=== PATIENT | male | born 1990 | race Asian ===

== ENCOUNTER → 2022-02-26 | Emergency (ER) | payer OTHER ==
[~2022-02-26] VITALS: Ht 185.4 cm; Wt 89.8 kg
[~2022-02-26] MED LIST: CEPH-548 PO; DIPHTH,PERTUSS(ACELL),TET VAC 0.5 ML VIAL (Tdap) I.M. ONE; LIDOCAINE 1% 10 MG/ML, 20 ML MDV INJ ONE
[2022-02-26 16:15] VITALS: BP_SYST 137
--- NOTE | 2022-02-26 16:20 | NUR ---
Patient triaged and placed in waiting room. VSS and patient appears in no acute distress at this time. Accompanied by SELF, awaiting available bed, and MD notified of need for MSE.
--- NOTE | 2022-02-26 16:43 | NUR ---
BROUGHT BACK TO BED IN [facility], REPORT GIVEN TO SID
--- NOTE | 2022-02-26 17:15 | NUR ---
Pt bib self to ER CC Skin tear, pt denies pain. left forearm with abrasion controlled bleeding. Left vazquez and thigh with abrasions controlled bleeding. pt has <3 sec cap refill, pedal pulses present and denies pain at this time.
--- NOTE | 2022-02-26 17:30 | NUR ---
ER at bedside examining patient.
[2022-02-26 18:06] VITALS: BP_SYST 137
--- NOTE | 2022-02-26 18:10 | NUR ---
Patient given written and verbal discharge instructions and verbalizes understanding. ER MD discussed with patient the results and treatment provided. Patient in stable condition. ID arm band removed. Opportunity for questions provided and answered. Medication side effect fact sheet provided.
--- NOTE | 2022-02-26 18:10 | NUR ---
SUTURED SITE AND ABRASION SITE CLEANED WITH STERILE SALINE. NON ADHESIVE APPLIED TO ALL ABRASION AND SUTURE SITE AND SECURED WITH BANDAGE WRAP.
== END | disposition home or self-care (01) ==
LOC: SED 16:15
DX: S81.012A Laceration without foreign body, left knee, initial encounter (principal); S50.312A Abrasion of left elbow, initial encounter; Z79.899 Other long term (current) drug therapy; W17.89XA Other fall from one level to another, initial encounter; Y93.89 Activity, other specified; Y92.89 Other specified places as the place of occurrence of the external cause; Y99.8 Other external cause status
CPT/HCPCS: 99283; 73610; 90715; 90471; 12002; J2001

== ENCOUNTER 2022-02-27 04:29 | Emergency (ER) | payer OTHER ==
[~2022-02-27] VITALS: Ht 185.4 cm; Wt 89.8 kg
[2022-02-27 04:32] VITALS: BP_SYST 123
[2022-02-27] MEDS ORDERED: cefTRIAXone 1 GM in LIDOCAINE 1%, 20 ML MDV 2.1 ML IM ONE (04:45)
[2022-02-27] MEDS ORDERED: CEPH-548 PO (04:50)
[2022-02-27 05:17] VITALS: BP_SYST 123
[2022-02-27] MEDS ORDERED: cefTRIAXone 1 GM VIAL ONE (05:20)
[2022-02-27] MEDS ORDERED: LIDOCAINE 1%, 20 ML MDV 20 ML ONE (05:21)
== END 2022-02-27 05:17 | disposition home or self-care (01) ==
LOC: SED 04:29
DX: S90.812A Abrasion, left foot, initial encounter (principal); S90.512A Abrasion, left ankle, initial encounter; S80.212A Abrasion, left knee, initial encounter; S50.312A Abrasion of left elbow, initial encounter; V29.9XXA Motorcycle rider (driver) (passenger) injured in unspecified traffic accident, initial encounter; Y93.89 Activity, other specified; Y92.89 Other specified places as the place of occurrence of the external cause; Y99.8 Other external cause status
CPT/HCPCS: 99283; 96372; J0696; J2001

== ENCOUNTER 2022-03-05 17:10 | Emergency (ER) | payer OTHER ==
[~2022-03-05] VITALS: Ht 185.4 cm; Wt 89.8 kg
[2022-03-05 17:10] VITALS: BP_SYST 132
[~2022-03-05 17:10] MED LIST changes: -DIPHTH,PERTUSS(ACELL),TET VAC 0.5 ML VIAL (Tdap) I.M. ONE; -LIDOCAINE 1% 10 MG/ML, 20 ML MDV INJ ONE
[2022-03-05 18:27] LABS: EOSINOPHILS # (AUTO) 0.1 K/uL (0.0-0.4); EOSINOPHILS % (AUTO) 1.7 % (0.0-4.0); LYMPHOCYTES # (AUTO) 1.9 K/uL (1.0-5.5); MONOCYTES # (AUTO) 0.8 K/uL (0.0-1.0); MONOCYTES % (AUTO) 10.1 % (1.7-9.3); RED CELL DISTRIBUTION WIDTH 13.1 % (9.0-15.0)
[2022-03-05 18:39] LABS: BASOPHILS % (AUTO) 0.4 % (0.0-2.0); HEMATOCRIT 41.6 % (36-54); HEMOGLOBIN 13.9 g/dL (14.0-18.0); LYMPHOCYTES % (AUTO) 23.4 % (20.5-51.5); MEAN CORPUSCULAR HEMOGLOBIN 28 pg (27-31); MEAN CORPUSCULAR HGB CONC 34 % (32-36); MEAN CORPUSCULAR VOLUME 85 fL (79.0-98.0); NEUTROPHILS # (AUTO) 5.2 K/uL (1.8-7.7); NEUTROPHILS % (AUTO) 64.4 % (40.0-70.0); PLATELET COUNT (AUTO) 329 K/uL (130-430); RED BLOOD CELL COUNT(AUTO) 4.91 MIL/uL (4.2-6.2)
[2022-03-05] MEDS ORDERED: BACITRACIN 1 GM OINT TP ONE ×2 (18:52→18:53)
[2022-03-05 19:15] LABS: CALCIUM 9.3 mg/dL (8.4-11.0); CREATININE 1.11 mg/dL (0.55-1.30); POTASSIUM 3.9 mmol/L (3.5-5.1)
[2022-03-05 19:21] LABS: ALBUMIN 3.5 g/dL (3.4-4.8); C-REACTIVE PROTEIN QUANT 0.6 mg/dL (0-0.5); TOTAL BILIRUBIN 0.4 mg/dL (0.0-1.0)
== END 2022-03-05 19:49 | disposition home or self-care (01) ==
LOC: SED 17:10
DX: L08.9 Local infection of the skin and subcutaneous tissue, unspecified (principal); Z79.899 Other long term (current) drug therapy
CPT/HCPCS: 36415; 80053; 83605; 85025; 86140; 99283

== ENCOUNTER 2022-04-13 17:30 | Outpatient (CLI) | payer OTHER ==
[2022-04-13 18:24] LABS: BASOPHILS % (AUTO) 0.4 % (0.0-2.0); EOSINOPHILS # (AUTO) 0.1 K/uL (0.0-0.4); EOSINOPHILS % (AUTO) 0.7 % (0.0-4.0); HEMATOCRIT 42.6 % (36-54); HEMOGLOBIN 14.5 g/dL (14.0-18.0); LYMPHOCYTES % (AUTO) 23.2 % (20.5-51.5); MEAN CORPUSCULAR HEMOGLOBIN 29 pg (27-31); MEAN CORPUSCULAR HGB CONC 34 % (32-36); MEAN CORPUSCULAR VOLUME 84 fL (79.0-98.0); MONOCYTES # (AUTO) 0.6 K/uL (0.0-1.0); MONOCYTES % (AUTO) 6.6 % (1.7-9.3); NEUTROPHILS % (AUTO) 69.1 % (40.0-70.0); PLATELET COUNT (AUTO) 291 K/uL (130-430); RED BLOOD CELL COUNT(AUTO) 5.07 MIL/uL (4.2-6.2); RED CELL DISTRIBUTION WIDTH 13.3 % (9.0-15.0); WHITE BLOOD COUNT (AUTO) 8.6 K/uL (4.8-10.8)
[2022-04-13 18:51] LABS: ALBUMIN 4.1 g/dL (3.4-4.8); CREATININE 1.23 mg/dL (0.55-1.30); POTASSIUM 3.7 mmol/L (3.5-5.1); THYROID STIMULATING HORMONE 1.11 uIu/mL (0.36-3.74); TOTAL BILIRUBIN 0.5 mg/dL (0.0-1.0)
== END 2022-04-13 19:44 | disposition home or self-care (01) ==
LOC: SLB 17:30
PROVIDERS: ATTEND Internal Medicine
DX: I10 Essential (primary) hypertension (principal); E78.5 Hyperlipidemia, unspecified; R73.9 Hyperglycemia, unspecified
CPT/HCPCS: 36415; 80053; 80061; 82306; 82607; 83036; 84443; 85025

== ENCOUNTER 2023-02-07 16:03 | Outpatient (CLI) | payer OTHER ==
[2023-02-07 17:01] LABS: BASOPHILS % (AUTO) 0.5 % (0.0-2.0); EOSINOPHILS # (AUTO) 0.1 K/uL (0.0-0.4); EOSINOPHILS % (AUTO) 1.2 % (0.0-4.0); HEMOGLOBIN 15.1 g/dL (14.0-18.0); LYMPHOCYTES # (AUTO) 1.9 K/uL (1.0-5.5); LYMPHOCYTES % (AUTO) 28.5 % (20.5-51.5); MEAN CORPUSCULAR HEMOGLOBIN 29 pg (27-31); MEAN CORPUSCULAR HGB CONC 34 % (32-36); MEAN CORPUSCULAR VOLUME 85 fL (79.0-98.0); MONOCYTES # (AUTO) 0.5 K/uL (0.0-1.0); MONOCYTES % (AUTO) 7.9 % (1.7-9.3); NEUTROPHILS # (AUTO) 4.2 K/uL (1.8-7.7); NEUTROPHILS % (AUTO) 61.9 % (40.0-70.0); PLATELET COUNT (AUTO) 317 K/uL (130-430); RED BLOOD CELL COUNT(AUTO) 5.28 MIL/uL (4.2-6.2); RED CELL DISTRIBUTION WIDTH 13.4 % (9.0-15.0); WHITE BLOOD COUNT (AUTO) 6.8 K/uL (4.8-10.8)
[2023-02-07 17:14] LABS: CALCIUM 8.8 mg/dL (8.4-11.0); CREATININE 0.97 mg/dL (0.55-1.30); THYROID STIMULATING HORMONE 0.96 uIu/mL (0.34-4.82); TOTAL BILIRUBIN 0.6 mg/dL (0.0-1.0)
== END 2023-02-07 20:19 | disposition home or self-care (01) ==
LOC: SLB 16:03
PROVIDERS: ATTEND Internal Medicine
DX: E78.5 Hyperlipidemia, unspecified (principal); E55.9 Vitamin D deficiency, unspecified; E56.9 Vitamin deficiency, unspecified; R73.9 Hyperglycemia, unspecified
CPT/HCPCS: 36415; 80053; 80061; 82306; 82607; 83037; 84443; 85025

== ENCOUNTER 2023-09-29 14:18 | Outpatient (CLI) | payer OTHER ==
[2023-09-29 16:14] LABS: BASOPHILS % (AUTO) 0.6 % (0.0-2.0); EOSINOPHILS # (AUTO) 0.1 K/uL (0.0-0.4); HEMATOCRIT 43.4 % (36-54); HEMOGLOBIN 14.9 g/dL (14.0-18.0); LYMPHOCYTES % (AUTO) 28.3 % (20.5-51.5); MEAN CORPUSCULAR HEMOGLOBIN 29 pg (27-31); MEAN CORPUSCULAR HGB CONC 34 % (32-36); MEAN CORPUSCULAR VOLUME 85 fL (79.0-98.0); MONOCYTES # (AUTO) 0.5 K/uL (0.0-1.0); MONOCYTES % (AUTO) 7.4 % (1.7-9.3); NEUTROPHILS # (AUTO) 4.3 K/uL (1.8-7.7); NEUTROPHILS % (AUTO) 62.7 % (40.0-70.0); PLATELET COUNT (AUTO) 293 K/uL (130-430); RED BLOOD CELL COUNT(AUTO) 5.11 MIL/uL (4.2-6.2); RED CELL DISTRIBUTION WIDTH 13.3 % (9.0-15.0); WHITE BLOOD COUNT (AUTO) 6.9 K/uL (4.8-10.8)
[2023-09-29 16:26] LABS: HEMOGLOBIN A1C 5.52 % (<5.7)
[2023-09-29 16:45] LABS: ALBUMIN 3.9 g/dL (3.4-4.8); CREATININE 1.09 mg/dL (0.55-1.30); POTASSIUM 3.8 mmol/L (3.5-5.1); THYROID STIMULATING HORMONE 1.44 uIu/mL (0.34-4.82); TOTAL BILIRUBIN 0.6 mg/dL (0.0-1.0); TOTAL PROTEIN, SERUM 7.9 g/dL (6.4-8.3); URIC ACID 9.3 mg/dL (2.4-7.0)
== END 2023-09-29 18:51 | disposition home or self-care (01) ==
LOC: SLB 14:18
PROVIDERS: ATTEND Internal Medicine
DX: E11.65 Type 2 diabetes mellitus with hyperglycemia (principal); E78.5 Hyperlipidemia, unspecified; E55.9 Vitamin D deficiency, unspecified; E56.9 Vitamin deficiency, unspecified; E03.9 Hypothyroidism, unspecified
CPT/HCPCS: 36415; 80053; 80061; 83037; 84443; 84550; 85025